=== PATIENT | female | born 1935 ===

== ENCOUNTER 2023-01-07 06:31 | Day surgery (SDC) | payer OTHER | END 2023-01-07 10:50 | disposition home or self-care (01) | LOC: AMB-ENDOS 06:31 | PROVIDERS: ATTEND Surgery | DX: D12.8 Benign neoplasm of rectum (principal); K57.30 Diverticulosis of large intestine without perforation or abscess without bleeding; K62.89 Other specified diseases of anus and rectum; Z20.822 Contact with and (suspected) exposure to COVID-19; Z88.0 Allergy status to penicillin ==

== ENCOUNTER 2023-02-10 10:26 | Inpatient (IN) | payer OTHER ==
[~2023-02-10] VITALS: Ht 144.8 cm; Wt 47.6 kg
[2023-02-11] MEDS ORDERED: COZAAR25 MG PO (15:16)
[2023-02-11] MEDS ORDERED: SYNTHROID100 MCG PO (15:16)
[2023-02-11] MEDS ORDERED: VENTOLIN HFA18 GM IH (15:17)
[2023-02-11] MEDS ORDERED: LIPITOR20 MG PO (15:17)
[2023-02-11] MEDS ORDERED: ADVAIR HFA 230/12 GM IH (15:17)
== END 2023-02-15 15:15 | disposition home or self-care (01) | DRG 334 ==
LOC: O/R 02-14 05:28 → SURH 02-14 10:27
PROVIDERS: ADMIT Surgery; ATTEND Surgery
PROC: 0DBP4ZZ Excision of Rectum, Percutaneous Endoscopic Approach (ICD-10-PCS; principal; 2023-02-14 20:45)
DX: D12.8 Benign neoplasm of rectum (principal); Z20.822 Contact with and (suspected) exposure to COVID-19
CPT/HCPCS: 0184T; 45123